=== PATIENT | female | born 1950 | race Asian ===

== ENCOUNTER 2022-11-24 05:55 | Emergency (ER) | payer BC, OTHER ==
[2022-11-24 06:05] VITALS: BP 172/73; PULSE 64; RESP 19; TEMP 97.8; BMI 22.3
[2022-11-24] MEDS ORDERED: PHENAZOPYRIDINE HCL 100 MG TABLET (FP) PO ONE (06:22)
[2022-11-24] MEDS ORDERED: CIPROFLOXACIN 500 MG TABLET (RESTRICTED TO ID) PO ONE (06:23)
[2022-11-24] MEDS ORDERED: PHENAZOPYRIDINE HCL 100 MG TABLET (FP) ONE (06:28)
[2022-11-24] MEDS ORDERED: CIPROFLOXACIN 250 MG TABLET (RESTRICTED TO ID) PO ONE (06:28)
== END 2022-11-24 06:56 | disposition home or self-care (01) ==
LOC: FER 05:55
DX: R30.0 Dysuria (principal); R35.0 Frequency of micturition; R10.9 Unspecified abdominal pain; N39.0 Urinary tract infection, site not specified
CPT/HCPCS: 81003; 87086; 99283-25